=== PATIENT | female | born 1960 ===

== ENCOUNTER 2021-02-14 08:36 | Observation (INO) | payer OTHER ==
[2021-02-14 09:38] LABS: Basophils % (Auto) 0.2 % (0.0-1.8); Eosinophils # (Auto) 0.1 K/mm3 (0.0-0.4); Eosinophils % (Auto) 0.8 % (0.0-4.3); Hematocrit 41.4 % (30.3-42.9); Hemoglobin 14.2 gm/dl (10.1-14.3); Lymphocytes % (Auto) 14.2 % (13.4-35.0); Mean Corpuscular HGB Conc 34 % (30-34); Mean Corpuscular Volume 95 fl (79-97); Monocytes # (Auto) 0.2 K/mm3 (0.0-0.8); Monocytes % (Auto) 3.7 % (0.0-7.3); Platelet Count 145 K/mm3 (140-440); Red Blood Count 4.37 M/mm3 (3.65-5.03); Red Cell Distribution Width 12.7 % (13.2-15.2)
[2021-02-14 09:50] LABS: Alanine Aminotransferase 16 units/L (7-56); Albumin 4.5 g/dL (3.9-5); Blood Urea Nitrogen 21 mg/dL (7-17); Calcium 9.4 mg/dL (8.4-10.2); Hemolysis Index 15
[2021-02-14 09:53] LABS: BUN/Creatinine Ratio 42
[2021-02-14 10:52] LABS: Bilirubin,Urine NEG (Negative); Blood,Urine SM (Negative); Color,Urine Yellow (Yellow); Mucus,Urine FEW /HPF; Protein,Urine <15 mg/dL mg/dL (Negative); Urobilinogen,Urine < 2.0 mg/dL (<2.0); WBC,Urine < 1.0 /HPF (0.0-6.0)
[2021-02-14] MEDS ORDERED: MORPHINE 4 MG/1 ML INJ IV ONE (11:04)
[2021-02-14] MEDS ORDERED: ONDANSETRON 4 MG/2 ML INJ IV ONE (11:04)
[2021-02-14] MEDS ORDERED: SODIUM CHLORIDE 0.9% 1000 ML 1,000 ML IV ONE (11:04)
--- NOTE | 2021-02-14 11:05 | Emergency Department Report ---
ED Abdominal Pain HPI - General Chief Complaint: Abdominal Pain Stated Complaint: STOMACH PAIN Time Seen by Provider: 02/14/21 10:17 Source: family Mode of arrival: Ambulatory Limitations: Language Barrier - History of Present Illness Initial Comments: 61-year-old female with a past medical history of hypertension, hyperlipidemia and colon cancer diagnosed in 2006 status post colon resection, currently in remission presents to the ER today with her daughter. Daughter was the overcaster. Patient complains of upper abdominal pain radiating around into her back since last night. She states that the pain has been constant. She also reports mild intermittent pain into her left chest and she states that when the pain in her abdomen intensifies she gets short of breath. She denies any nausea or vomiting. She denies any diarrhea. The last time she had a bowel movement was this morning but only had small amount of stool. She denies any melena or hematochezia. She denies any fever, chills, cough, wheezing, or UTI symptoms. MD Complaint: abdominal pain -: Gradual, Last night - Related Data Allergies Allergy/AdvReac Type Severity Reaction Status Date / Time No Known Allergies Allergy Unverified 02/14/21 08:43 ED Review of Systems ROS: Stated complaint: STOMACH PAIN Other details as noted in HPI Comment: All other systems reviewed and negative Constitutional: denies: chills, fever Eyes: denies: eye pain, eye discharge, vision change ENT: denies: ear pain, throat pain Respiratory: denies: cough, shortness of breath, SOB with exertion, SOB at rest, wheezing Cardiovascular: denies: chest pain, palpitations, edema, syncope, paroxysmal nocturnal dyspnea Gastrointestinal: abdominal pain, nausea. denies: vomiting, diarrhea, constipation, hematemesis, melena, hematochezia Genitourinary: denies: urgency, dysuria, frequency, hematuria, discharge, abnormal menses, dyspareunia Musculoskeletal: denies: back pain, joint swelling, arthralgia Skin: denies: rash, lesions, change in color, change in hair/nails, pruritus Neurological: denies: headache, weakness, paresthesias Psychiatric: denies: anxiety, depression, auditory hallucinations, visual hallucinations, homicidal thoughts, suicidal thoughts Hematological/Lymphatic: denies: easy bleeding, easy bruising ED Past Medical Hx - Past Medical History Hx of Cancer: Yes (COLON CA 2006) - Social History Smoking Status: Never Smoker Substance Use Type: None ED Physical Exam - General Limitations: Language Barrier General appearance: alert, in distress (Patient appears uncomfortable and in mild distress due to pain), obese - Head Head exam: Present: atraumatic, normocephalic, normal inspection - Eye Eye exam: Present: normal appearance, PERRL, EOMI Pupils: Present: normal accommodation - ENT ENT exam: Present: normal exam, mucous membranes moist, TM's normal bilaterally - Neck Neck exam: Present: normal inspection, full ROM - Respiratory Respiratory exam: Present: normal lung sounds bilaterally. Absent: respiratory distress, wheezes, rales, rhonchi, stridor - Cardiovascular Cardiovascular Exam: Present: regular rate, normal rhythm, normal heart sounds - GI/Abdominal GI/Abdominal exam: Present: soft, tenderness (Moderate tenderness to palpation to the right upper quadrant and epigastric area with some mild guarding but no rebound, or distention or rigidity), guarding. Absent: distended, rebound, rigid - Neurological Exam Neurological exam: Present: alert, oriented X3, CN II-XII intact, normal gait - Psychiatric Psychiatric exam: Present: normal affect, normal mood - Skin Skin exam: Present: intact ED Course Vital Signs 02/14/21 08:47 Temperature 98.9 F Pulse Rate 57 L Respiratory 24 Rate Blood Pressure 152/52 O2 Sat by Pulse 98 Oximetry ED Medical Decision Making - Lab Data Result diagrams: 02/14/21 09:00 02/14/21 09:00 - Radiology Data Radiology results: report reviewed Patient: ZOILA MILES MR#: [id number] 56 : 1960 Acct:[id number] Age/Sex: 61 / F ADM Date: 02/14/21 Loc: ED Attending Dr: Ordering Physician: JUMANA BOLTON Date of Service: 02/14/21 Procedure(s): XR chest routine 2V Accession Number(s): [id number] cc: JUMANA BOLTON Fluoro Time In Minutes: CHEST 2 VIEWS INDICATION / CLINICAL INFORMATION: chest pain. COMPARISON: None available. FINDINGS: SUPPORT DEVICES: None. HEART / MEDIASTINUM: No significant abnormality. LUNGS / PLEURA: No significant pulmonary or pleural abnormality. No pneumothorax. ADDITIONAL FINDINGS: No significant additional findings. IMPRESSION: 1. No acute findings. Signer Name: Kevin Bateman MD Signed: 02/14/2021 11:44 AM Workstation Name: [id number] Transcribed By: ADITI Dictated By: ANDRES BATEMAN MD Electronically Authenticated By: ANDRES BATEMAN MD Signed Date/Time: 02/14/21 1144 DD/ 1144 TD/TT: Patient: ZOILA MILES MR#: [id number] 56 : 1960 Acct:[id number] Age/Sex: 61 / F ADM Date: 02/14/21 Loc: ED Attending Dr: Ordering Physician: JUMANA BOLTON Date of Service: 02/14/21 Procedure(s): CT abdomen pelvis w con Accession Number(s): [id number] cc: JUMANA BOLTON CT ABDOMEN AND PELVIS WITH CONTRAST INDICATION: severe upper abd pain OMNIPAQUE 300 100ML CONTRAST: 100 cc Omnipaque 300 IV COMPARISON: None available. All CT scans at this location are performed using CT dose reduction for ALARA by means of automated exposure control. FINDINGS: Lung bases show mild atelectatic changes. No pneumoperitoneum is seen. Small cyst is noted in the liver. No other abdominal masses are seen. No urinary obstructive changes are noted. No evidence of bowel obstruction is seen. Right colectomy changes are noted. No pelvic masses are seen. No lymphadenopathy is noted. Gallbladder shows probable low-density large calculus. Gallbladder wall is prominently thickened and edematous. No biliary dilatation is seen. Pancreas appears within normal limits. IMPRESSION: Prominent wall edema of the gallbladder and probable cholelithiasis. Pattern is most consistent with acute cholecystitis. Gallbladder ultrasound may be useful for confirmation. Signer Name: Chito Naidu MD Signed: 02/14/2021 2:32 PM Workstation Name: [id number] Transcribed By: GJ Dictated By: Chito Naidu MD Electronically Authenticated By: Chito Naidu MD Signed Date/Time: 02/14/21 1432 DD/ 1430 TD/TT: Patient: ZOILA MILES MR#: [id number] [birth year] : 1960 Acct:[id number] Age/Sex: 61 / F ADM Date: 02/14/21 Loc: ED Attending Dr: Ordering Physician: JUMANA BOLTON Date of Service: 02/14/21 Procedure(s): US abdomen limited Accession Number(s): [id number] cc: JUMANA BOLTON ULTRASOUND ABDOMEN, LIMITED (RIGHT UPPER QUADRANT) INDICATION: Right upper quadrant/epigastric pain/cholecystitis COMPARISON: CT abdomen and pelvis today FINDINGS: Pancreas: Poorly seen Liver: Normal. Gallbladder: Multiple gallstones are noted. Though the technologist only measured a 1 mm gallbladder wall, I believe the gallbladder wall is actually quite edematous as seen on CT and measures at least 7 mm in thickness with internal fluid seen. Bile ducts: Normal. Common Bile Duct measures 2 mm. Right Kidney: Visualized portions show no abnormality. Free fluid: None. Additional Findings: None. IMPRESSION: Cholelithiasis with prominent gallbladder wall edema consistent with acute cholecystitis and consistent with the CT appearance Signer Name: Chito Naidu MD Signed: 02/14/2021 4:03 PM Workstation Name: [id number] Transcribed By: Dictated By: Chito Naidu MD Electronically Authenticated By: Chito Naidu MD Signed Date/Time: 02/14/21 1603 DD/ 1600 TD/TT: - Medical Decision Making All labs reviewed. CT and ultrasound reviewed. Work-up today shows that patient has acute cholecystitis. Her white count is normal. LFTs are normal. Lipase is normal. She is currently resting comfortably and feels better after morphine and Zofran. I did discuss lab and imaging results with patient. I discussed the diagnosis of cholecystitis with patient and that we will need to consult the general surgeon and that she will likely be admitted to the hospital. 1624: Case discussed with surgeon on-call, Dr Becker -agree with admitting patient to the hospitalist service and they will consult and she will likely take patient to the operating room tomorrow. She recommends starting patient on Zosyn and keeping patient n.p.o. after midnight. 1629: Discussed case with hospitalist, Dr Camarillo - He will admit patient. Discussed diagnosis, and the reason for admission with patient and her daughter( who is now in the room). They both expressed understanding and agree with plan. Patient is currently resting comfortably and states that she does not need any additional pain medication at this time. Critical care attestation.: If time is entered above; I have spent that time in minutes in the direct care of this critically ill patient, excluding procedure time. ED Disposition Clinical Impression: Acute cholecystitis Disposition: OP ADMIT IP TO THIS HOSP Is pt being admited?: Yes Does the pt Need Aspirin: No Condition: Stable
--- NOTE | 2021-02-14 11:48 | XRay Report ---
CHEST 2 VIEWS INDICATION / CLINICAL INFORMATION: chest pain. COMPARISON: None available. FINDINGS: SUPPORT DEVICES: None. HEART / MEDIASTINUM: No significant abnormality. LUNGS / PLEURA: No significant pulmonary or pleural abnormality. No pneumothorax. ADDITIONAL FINDINGS: No significant additional findings. IMPRESSION: 1. No acute findings. Signer Name: Kevin Bateman MD Signed: 02/14/2021 11:44 AM Workstation Name: [email or web address]
[2021-02-14 12:32] LABS: Alanine Aminotransferase 18 units/L (7-56); Albumin 4.5 g/dL (3.9-5)
[2021-02-14 12:46] LABS: Bilirubin,Direct < 0.2 mg/dL (0-0.2)
--- NOTE | 2021-02-14 14:37 | Cat Scan Report ---
CT ABDOMEN AND PELVIS WITH CONTRAST INDICATION: severe upper abd pain OMNIPAQUE 300 100ML CONTRAST: 100 cc Omnipaque 300 IV COMPARISON: None available. All CT scans at this location are performed using CT dose reduction for ALARA by means of automated e xposure control. FINDINGS: Lung bases show mild atelectatic changes. No pneumoperitoneum is seen. Small cyst is noted in the liver. No other abdominal masses are seen. No urinary obstructive changes are noted. No eviden ce of bowel obstruction is seen. Right colectomy changes are noted. No pelvic masses are seen. No lym phadenopathy is noted. Gallbladder shows probable low-density large calculus. Gallbladder wall is prominently thickened and edematous. No biliary dilatation is seen. Pancreas appears within normal limits. IMPRESSION: Prominent wall edema of the gallbladder and probable cholelithiasis. Pattern is most cons istent with acute cholecystitis. Gallbladder ultrasound may be useful for confirmation. Signer Name: Chito Naidu MD Signed: 02/14/2021 2:32 PM Workstation Name: [id number]
--- NOTE | 2021-02-14 16:07 | Ultrasound Report ---
ULTRASOUND ABDOMEN, LIMITED (RIGHT UPPER QUADRANT) INDICATION: Right upper quadrant/epigastric pain/cholecystitis COMPARISON: CT abdomen and pelvis today FINDINGS: Pancreas: Poorly seen Liver: Normal. Gallbladder: Multiple gallstones are noted. Though the technologist only measured a 1 mm gallbladder wall, I believe the gallbladder wall is actually quite edematous as seen on CT and measures at least 7 mm in thickness with internal fluid seen. Bile ducts: Normal. Common Bile Duct measures 2 mm. Right Kidney: Visualized portions show no abnormality. Free fluid: None. Additional Findings: None. IMPRESSION: Cholelithiasis with prominent gallbladder wall edema consistent with acute cholecystitis and consistent with the CT appearance Signer Name: Chito Naidu MD Signed: 02/14/2021 4:03 PM Workstation Name: [id number]
[2021-02-14] MEDS ORDERED: PIPERACILLIN/TAZOBACTAM 3.375 3.375 GM/50 ML BAG IV ONE (16:24)
[2021-02-14] MEDS ORDERED: oxyCODONE /ACETAMINOPHEN 5-325MG TAB PO PRN (16:29)
[2021-02-14] MEDS ORDERED: ACETAMINOPHEN 325 MG TAB PO PRN (16:29)
[2021-02-14] MEDS ORDERED: HYDROmorphone 1 MG/1 ML INJ IV PRN (16:29)
[2021-02-14] MEDS ORDERED: ALBUTEROL 2.5 MG/3 ML NEBU IH PRN (16:29)
[2021-02-14] MEDS ORDERED: ONDANSETRON 4 MG/2 ML INJ IV PRN (16:29)
[2021-02-14] MEDS ORDERED: SODIUM CHLORIDE 0.9% 1000 ML 1,000 ML IV SCH (16:30)
[2021-02-15 04:35] LABS: Basophils % (Auto) 0.5 % (0.0-1.8); Eosinophils # (Auto) 0.2 K/mm3 (0.0-0.4); Eosinophils % (Auto) 4.2 % (0.0-4.3); Hematocrit 37.5 % (30.3-42.9); Hemoglobin 12.8 gm/dl (10.1-14.3); Lymphocytes # (Auto) 1.5 K/mm3 (1.2-5.4); Lymphocytes % (Auto) 37.2 % (13.4-35.0); Mean Corpuscular HGB Conc 34 % (30-34); Mean Corpuscular Volume 95 fl (79-97); Monocytes # (Auto) 0.4 K/mm3 (0.0-0.8); Monocytes % (Auto) 8.8 % (0.0-7.3); Platelet Count 125 K/mm3 (140-440); Red Blood Count 3.96 M/mm3 (3.65-5.03); Red Cell Distribution Width 13.2 % (13.2-15.2)
[2021-02-15 04:57] LABS: Alanine Aminotransferase 14 units/L (7-56); Albumin 3.8 g/dL (3.9-5); Blood Urea Nitrogen 13 mg/dL (7-17); Hemolysis Index 7
[2021-02-15 05:14] LABS: BUN/Creatinine Ratio 26
[2021-02-15] MEDS: PIPERACIL/TAZOBACTA 4.5/NS 100 4.5 GM/100 ML VIAL IV SCH ×2 (08:13→21:22)
--- NOTE | 2021-02-15 11:41 | History and Physical Report ---
History of Present Illness Date of admission: 02/14/21 16:29 Chief complaint: My stomach hurts History of present illness: 61 YO Female with Obesity Hypoventilation Syndrome,HTN, HLD, Colon Cancer S/P resection presents to ED for evaluation. Patient reports "my stomach hurts". Patient states that she has experienced abdominal pain over the past 1 day with persistent symptoms over the same timeframe. Patient states that pain is 5/10, constant, worsened with movement, relieved with nonmovement. Patient transported to [facility] via private vehicle for further care and evaluation of the aforementioned symptoms. The patient was seen and evaluated in the emergency department. All lab and imaging studies reviewed. Patient with CT scan of the abdomen and pelvis and was found to have evidence of acute cholecystitis. Patient admitted to medical floor and treated with bowel rest, pain control, and supportive care. Surgical team consulted in ED. No reports of fever, chills, chest pain, palpitation, adductive cough, skin rash, recent ill contacts, or known exposure to COVID-19. No prior admission for review. No medication listed at time of admission reconciliation. Advanced care planning conducted in ED. Past History Past Medical History: cancer, hypertension, other (See HPI) Past Surgical History: bowel surgery Social history: single. denies: smoking, alcohol abuse, prescription drug abuse Family history: hypertension Medications and Allergies Allergies Allergy/AdvReac Type Severity Reaction Status Date / Time No Known Allergies Allergy Unverified 02/14/21 08:43 Active Meds: Active Medications Acetaminophen (Acetaminophen 325 Mg Tab) 650 mg PO Q4H PRN PRN Reason: Pain MILD(1-3)/Fever >100.5/SOUZA Albuterol (Albuterol 2.5 Mg/3 Ml Nebu) 2.5 mg IH Q4HRT PRN PRN Reason: Shortness Of Breath Hydromorphone HCl (Hydromorphone 1 Mg/1 Ml Inj) 0.5 mg IV Q3H PRN PRN Reason: Pain , Severe (7-10) Sodium Chloride (Nacl 0.9% 1000 Ml) 1,000 mls @ 100 mls/hr IV DIRECT DANIE Piperacillin Sod/Tazobactam Sod (Zosyn/Ns 4.5gm/100ml) 4.5 gm in 100 mls @ 200 mls/hr IV Q8H DANIE; Protocol Last Admin: 02/15/21 08:13 Dose: 200 mls/hr Documented by: Ondansetron HCl (Ondansetron 4 Mg/2 Ml Inj) 4 mg IV Q8H PRN PRN Reason: Nausea And Vomiting Oxycodone/Acetaminophen (Oxycodone /Acetaminophen 5-325mg Tab) 1 tab PO Q6H PRN PRN Reason: Pain, Moderate (4-6) Last Admin: 02/14/21 16:48 Dose: 1 tab Documented by: Sodium Chloride (Sodium Chloride 0.9% 10 Ml Flush Syringe) 10 ml IV BID [facility] Last Admin: 02/15/21 09:59 Dose: 10 ml Documented by: Sodium Chloride (Sodium Chloride 0.9% 10 Ml Flush Syringe) 10 ml IV PRN PRN PRN Reason: LINE FLUSH Review of Systems Constitutional: no weight loss, no weight gain, no fever, no chills Ears, nose, mouth and throat: no ear pain, no ear discharge, no decreased heari ng, no nasal congestion Breasts: no change in shape, no swelling, no mass Cardiovascular: no chest pain, no orthopnea, no edema Respiratory: no cough, no cough with sputum, no excessive sputum, no shortness of breath Gastrointestinal: abdominal pain, no nausea, no vomiting, no diarrhea, no BRBPR, no melena Genitourinary Female: no pelvic pain, no flank pain, no dysuria, no urinary frequency Rectal: no pain, no incontinence, no bleeding Musculoskeletal: no neck stiffness, no neck pain, no arm numbness/tingling, no low back pain Integumentary: no rash, no pruritis, no redness, no sores, no wounds Neurological: no head injury, no transient paralysis, no weakness, no tingling, no seizures, no syncope, no tremors Psychiatric: no anxiety, no memory loss, no change in sleep habits, no sleep disturbances, no hypersomnia, no change in appetite, no change in libido, no hallucinations Endocrine: no heat intolerance, no polyphagia, no polyuria, no nocturia, no flushing, no weight change, no low blood sugars Hematologic/Lymphatic: no easy bruising, no easy bleeding, no lymphadenopathy Allergic/Immunologic: no urticaria, no wheezing, no anaphylaxis Exam - Constitutional Vitals: Temp Pulse Resp BP Pulse Ox 98.4 F 60 18 142/82 97 02/14/21 17:00 02/14/21 17:00 02/14/21 17:00 02/14/21 17:00 02/14/21 17:00 General appearance: Present: mild distress, obese - EENT Eyes: Present: PERRL ENT: hearing intact, clear oral mucosa - Neck Neck: Present: supple, normal ROM - Respiratory Respiratory effort: normal Respiratory: bilateral: CTA - Cardiovascular Heart Sounds: Present: S1 & S2. Absent: rub, click - Extremities Extremities: pulses symmetrical, No edema Peripheral Pulses: within normal limits - Abdominal General gastrointestinal: Present: soft, tender, non-distended, normal bowel sounds Female genitourinary: Present: normal - Integumentary Integumentary: Present: clear, warm, dry - Musculoskeletal Musculoskeletal: gait normal, strength equal bilaterally - Psychiatric Psychiatric: appropriate mood/affect, intact judgment & insight - Neurologic Neurologic: CNII-XII intact, moves all extremities HEART Score - HEART Score Troponin: Troponin T < 0.010 ng/mL (0.00-0.029) 02/14/21 09:00 Results - Labs CBC & Chem 7: 02/15/21 04:03 02/15/21 04:03 Labs: Abnormal lab results 02/15/21 02/15/21 Range/Units 04:03 04:03 WBC 4.0 L (4.5-11.0) K/mm3 Plt Count 125 L (140-440) K/mm3 Lymph % (Auto) 37.2 H (13.4-35.0) % [place] % (Auto) 8.8 H (0.0-7.3) % Creatinine 0.5 L (0.6-1.2) mg/dL Total Protein 6.0 L D (6.3-8.2) g/dL Albumin 3.8 L (3.9-5) g/dL Assessment and Plan - Patient Problems (1) Acute cholecystitis Current Visit: Yes Status: Acute Plan to address problem: Serial abdominal exam, CT scan abdomen and pelvis, bowel rest, IV fluid resuscitation therapy, empiric IV antibiotic therapy, surgical team consulted. Patient pending surgical intervention. (2) Obesity hypoventilation syndrome Current Visit: Yes Status: Acute Plan to address problem: Balanced diet, increase physical activity at discharge, outpatient pulmonary follow-up for sleep study. (3) Hypertension Current Visit: Yes Status: Acute Qualifiers: Hypertension type: primary hypertension Qualified Code(s): I10 - Essential (primary) hypertension Plan to address problem: Monitor blood pressure every shift, continue medical management (4) Hyperlipidemia Current Visit: Yes Status: Acute Qualifiers: Hyperlipidemia type: mixed hyperlipidemia Qualified Code(s): E78.2 - Mixed hyperlipidemia Plan to address problem: Statin therapy, supportive care (5) DVT prophylaxis Current Visit: Yes Status: Acute Plan to address problem: SCD to bilateral lower extremities while in bed, ambulate 3 times daily and as needed, out of bed to chair as needed (6) Advance care planning Current Visit: Yes Status: Acute Plan to address problem: Disease education conducted, care plan discussed, diagnosis discussed, prognosis discussed, patient is full code, patient and daughter knowledges understanding and agreement with care plan, +30 minutes.
--- NOTE | 2021-02-15 11:50 | Consultation ---
History of Present Illness Consult date: 02/15/21 Reason for consult: abdominal pain Chief complaint: abd pain - History of present illness History of present illness: 61-year-old female with PMH of HTN, HLD, colon cancer s/p resection presents to the ER with c/o sharp epigastric pain that started 1 days ago.Pain radiates to back. Pain has been constant but better now. She denies any nausea or vomiting, diarrhea. No f/c. W/u in Er revealed acute cholecystitis and surgery is consulted for evaluation. Patient's daughter contacted as well. Past History Past Medical History: cancer (colon), hypertension, hyperlipidemia Past Surgical History: bowel surgery Social history: no significant social history Medications and Allergies Allergies Allergy/AdvReac Type Severity Reaction Status Date / Time No Known Allergies Allergy Unverified 02/14/21 08:43 Active Meds: Active Medications Acetaminophen (Acetaminophen 325 Mg Tab) 650 mg PO Q4H PRN PRN Reason: Pain MILD(1-3)/Fever >100.5/SOUZA Albuterol (Albuterol 2.5 Mg/3 Ml Nebu) 2.5 mg IH Q4HRT PRN PRN Reason: Shortness Of Breath Hydromorphone HCl (Hydromorphone 1 Mg/1 Ml Inj) 0.5 mg IV Q3H PRN PRN Reason: Pain , Severe (7-10) Sodium Chloride (Nacl 0.9% 1000 Ml) 1,000 mls @ 100 mls/hr IV DIRECT DANIE Piperacillin Sod/Tazobactam Sod (Zosyn/Ns 4.5gm/100ml) 4.5 gm in 100 mls @ 200 mls/hr IV Q8H DANIE; Protocol Last Admin: 02/15/21 08:13 Dose: 200 mls/hr Documented by: Ondansetron HCl (Ondansetron 4 Mg/2 Ml Inj) 4 mg IV Q8H PRN PRN Reason: Nausea And Vomiting Oxycodone/Acetaminophen (Oxycodone /Acetaminophen 5-325mg Tab) 1 tab PO Q6H PRN PRN Reason: Pain, Moderate (4-6) Last Admin: 02/14/21 16:48 Dose: 1 tab Documented by: Sodium Chloride (Sodium Chloride 0.9% 10 Ml Flush Syringe) 10 ml IV BID DANIE Last Admin: 02/15/21 09:59 Dose: 10 ml Documented by: Sodium Chloride (Sodium Chloride 0.9% 10 Ml Flush Syringe) 10 ml IV PRN PRN PRN Reason: LINE FLUSH Review of Systems All systems: negative (10 pt ROS performed and negative except for that listed in HPI) Exam Vital Signs Temp Pulse Resp BP Pulse Ox 98.9 F 57 L 24 152/52 98 02/14/21 08:47 02/14/21 08:47 02/14/21 08:47 02/14/21 08:47 02/14/21 08:47 Narrative exam: Gen; AAox3. NAD ENT: no scleral icterus CV: S1, S2+ Resp; even and unlabored Abd; soft, ND, mild epigastric TTP. No r/r/g. Well healed midline surgical scar. Ext: no c/c/e Results - Labs 02/15/21 04:03 02/15/21 04:03 Abnormal lab results 02/15/21 02/15/21 Range/Units 04:03 04:03 WBC 4.0 L (4.5-11.0) K/mm3 Plt Count 125 L (140-440) K/mm3 Lymph % (Auto) 37.2 H (13.4-35.0) % [place] % (Auto) 8.8 H (0.0-7.3) % Creatinine 0.5 L (0.6-1.2) mg/dL Total Protein 6.0 L D (6.3-8.2) g/dL Albumin 3.8 L (3.9-5) g/dL Diabetes panel 02/14/21 02/15/21 Range/Units 09:00 04:03 Sodium 140 (137-145) mmol/L Potassium 3.8 (3.6-5.0) mmol/L Chloride 105.8 (98-107) mmol/L Carbon Dioxide 24 (22-30) mmol/L BUN 13 (7-17) mg/dL Creatinine 0.5 L (0.6-1.2) mg/dL Glucose 86 (65-100) mg/dL Calcium 9.0 (8.4-10.2) mg/dL AST 24 19 (5-40) units/L ALT 18 14 (7-56) units/L Alkaline Phosphatase 83 68 (35-129) units/L Total Protein 7.6 6.0 L D (6.3-8.2) g/dL Albumin 4.5 3.8 L (3.9-5) g/dL Calcium panel 02/14/21 02/15/21 Range/Units 09:00 04:03 Calcium 9.0 (8.4-10.2) mg/dL Albumin 4.5 3.8 L (3.9-5) g/dL Pituitary panel 02/15/21 Range/Units 04:03 Sodium 140 (137-145) mmol/L Potassium 3.8 (3.6-5.0) mmol/L Chloride 105.8 (98-107) mmol/L Carbon Dioxide 24 (22-30) mmol/L BUN 13 (7-17) mg/dL Creatinine 0.5 L (0.6-1.2) mg/dL Glucose 86 (65-100) mg/dL Calcium 9.0 (8.4-10.2) mg/dL Adrenal panel 02/14/21 02/15/21 Range/Units 09:00 04:03 Sodium 140 (137-145) mmol/L Potassium 3.8 (3.6-5.0) mmol/L Chloride 105.8 (98-107) mmol/L Carbon Dioxide 24 (22-30) mmol/L BUN 13 (7-17) mg/dL Creatinine 0.5 L (0.6-1.2) mg/dL Glucose 86 (65-100) mg/dL Calcium 9.0 (8.4-10.2) mg/dL Total Bilirubin 0.20 0.60 (0.1-1.2) mg/dL AST 24 19 (5-40) units/L ALT 18 14 (7-56) units/L Alkaline Phosphatase 83 68 (35-129) units/L Total Protein 7.6 6.0 L D (6.3-8.2) g/dL Albumin 4.5 3.8 L (3.9-5) g/dL - Imaging CT scan - abdomen: report reviewed, image reviewed CT scan - pelvis: report reviewed, image reviewed US - abdomen: report reviewed, image reviewed Assessment and Plan 61 yo F with acute cholecystitis Plan: 1. NPO 2. IVF 3. IV abx 4. prn pain and nausea control 5. Recommend cholecystectomy. Discussed with patient and her daughter over telephone. All risks, benefits, alternatives discussed and questions answered. Consent obtained. Thank you, please call with questions.
--- NOTE | 2021-02-15 11:54 | Electrocardiograph Report ---
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
[2021-02-15] MEDS ORDERED: BUPIVACAINE/PF (0.5%) 5 MG/1 ML 30 ML VIAL INFILTRATI ONE ×2 (13:52→17:13)
[2021-02-15] MEDS ORDERED: LIDOCAINE (1%) 10 MG/1 ML VIAL 20 ML MDV ONE (13:52)
--- NOTE | 2021-02-15 14:22 | Progress Note ---
Assessment and Plan - Patient Problems (1) Acute cholecystitis Current Visit: Yes Status: Acute Plan to address problem: Serial abdominal exam, surgical team consulted. Patient pending surgical intervention. (2) Obesity hypoventilation syndrome Current Visit: Yes Status: Acute Plan to address problem: Balanced diet, increase physical activity at discharge, outpatient pulmonary follow-up for sleep study. (3) Hypertension Current Visit: Yes Status: Acute Qualifiers: Hypertension type: primary hypertension Qualified Code(s): I10 - Essential (primary) hypertension Plan to address problem: Monitor blood pressure every shift, continue medical management (4) Hyperlipidemia Current Visit: Yes Status: Acute Qualifiers: Hyperlipidemia type: mixed hyperlipidemia Qualified Code(s): E78.2 - Mixed hyperlipidemia Plan to address problem: Statin therapy, supportive care (5) DVT prophylaxis Current Visit: Yes Status: Acute Plan to address problem: SCD to bilateral lower extremities while in bed, ambulate 3 times daily and as needed, out of bed to chair as needed (6) Advance care planning Current Visit: Yes Status: Acute Plan to address problem: Disease education conducted, care plan discussed, diagnosis discussed, prognosis discussed, patient is full code, patient and daughter knowledges understanding and agreement with care plan, +30 minutes. History Interval history: 61 YO Female HD #2 with Acute Cholecystitis. Patient seen and evaluated in her room. No reported nursing events. Patient appears comfortable. Patient is pending surgical intervention at this time. Hospitalist Physical - Constitutional Vitals: Temp Pulse Resp BP Pulse Ox 98.4 F 60 18 142/82 97 02/14/21 17:00 02/14/21 17:00 02/14/21 17:00 02/14/21 17:00 02/14/21 17:00 General appearance: Present: mild distress, obese - EENT Eyes: Present: PERRL, EOM intact ENT: hearing intact - Neck Neck: Present: supple - Respiratory Respiratory effort: normal Respiratory: bilateral: CTA - Cardiovascular Rhythm: regular Heart Sounds: Present: S1 & S2 - Extremities Extremities: no ischemia Extremity abnormal: edema Peripheral Pulses: abnormal - Abdominal General gastrointestinal: soft, non-distended - Integumentary Integumentary: Present: clear, dry - Psychiatric Psychiatric: cooperative - Neurologic Neurologic: CNII-XII intact HEART Score - HEART Score Troponin: Troponin T < 0.010 ng/mL (0.00-0.029) 02/14/21 09:00 Results - Labs CBC & Chem 7: 02/15/21 04:03 02/15/21 04:03 Labs: Laboratory Last Values WBC 4.0 K/mm3 (4.5-11.0) L 02/15/21 04:03 RBC 3.96 M/mm3 (3.65-5.03) 02/15/21 04:03 Hgb 12.8 gm/dl (10.1-14.3) 02/15/21 04:03 Hct 37.5 % (30.3-42.9) 02/15/21 04:03 MCV 95 fl (79-97) 02/15/21 04:03 MCH 32 pg (28-32) 02/15/21 04:03 MCHC 34 % (30-34) 02/15/21 04:03 RDW 13.2 % (13.2-15.2) 02/15/21 04:03 Plt Count 125 K/mm3 (140-440) L 02/15/21 04:03 Lymph % (Auto) 37.2 % (13.4-35.0) H 02/15/21 04:03 [place] % (Auto) 8.8 % (0.0-7.3) H 02/15/21 04:03 Eos % (Auto) 4.2 % (0.0-4.3) 02/15/21 04:03 Baso % (Auto) 0.5 % (0.0-1.8) 02/15/21 04:03 Lymph # (Auto) 1.5 K/mm3 (1.2-5.4) 02/15/21 04:03 [place] # (Auto) 0.4 K/mm3 (0.0-0.8) 02/15/21 04:03 Eos # (Auto) 0.2 K/mm3 (0.0-0.4) 02/15/21 04:03 Baso # (Auto) 0.0 K/mm3 (0.0-0.1) 02/15/21 04:03 Seg Neutrophils % 49.3 % (40.0-70.0) 02/15/21 04:03 Seg Neutrophils # 2.0 K/mm3 (1.8-7.7) 02/15/21 04:03 Sodium 140 mmol/L (137-145) 02/15/21 04:03 Potassium 3.8 mmol/L (3.6-5.0) 02/15/21 04:03 Chloride 105.8 mmol/L (98-107) 02/15/21 04:03 Carbon Dioxide 24 mmol/L (22-30) 02/15/21 04:03 Anion Gap 14 mmol/L 02/15/21 04:03 BUN 13 mg/dL (7-17) 02/15/21 04:03 Creatinine 0.5 mg/dL (0.6-1.2) L 02/15/21 04:03 Estimated GFR > 60 ml/min 02/15/21 04:03 BUN/Creatinine Ratio 26 % 02/15/21 04:03 Glucose 86 mg/dL (65-100) 02/15/21 04:03 Calcium 9.0 mg/dL (8.4-10.2) 02/15/21 04:03 Total Bilirubin 0.60 mg/dL (0.1-1.2) 02/15/21 04:03 Direct Bilirubin < 0.2 mg/dL (0-0.2) 02/14/21 09:00 Indirect Bilirubin 0.0 mg/dL 02/14/21 09:00 AST 19 units/L (5-40) 02/15/21 04:03 ALT 14 units/L (7-56) 02/15/21 04:03 Alkaline Phosphatase 68 units/L (35-129) 02/15/21 04:03 Troponin T < 0.010 ng/mL (0.00-0.029) 02/14/21 09:00 Total Protein 6.0 g/dL (6.3-8.2) L D 02/15/21 04:03 Albumin 3.8 g/dL (3.9-5) L 02/15/21 04:03 Albumin/Globulin Ratio 1.7 % 02/15/21 04:03 Lipase 51 units/L (13-60) 02/14/21 09:00 Urine Color Yellow (Yellow) 02/14/21 08:52 Urine Turbidity Clear (Clear) 02/14/21 08:52 Urine pH 5.0 (5.0-7.0) 02/14/21 08:52 Ur Specific [place] 1.021 (1.003-1.030) 02/14/21 08:52 Urine Protein <15 mg/dl mg/dL (Negative) 02/14/21 08:52 Urine Glucose (UA) Neg mg/dL (Negative) 02/14/21 08:52 Urine Ketones Neg mg/dL (Negative) 02/14/21 08:52 Urine Blood Sm (Negative) 02/14/21 08:52 Urine Nitrite Neg (Negative) 02/14/21 08:52 Urine Bilirubin Neg (Negative) 02/14/21 08:52 Urine Urobilinogen < 2.0 mg/dL (<2.0) 02/14/21 08:52 Ur Leukocyte Esterase Neg (Negative) 02/14/21 08:52 Urine WBC (Auto) < 1.0 /HPF (0.0-6.0) 02/14/21 08:52 Urine RBC (Auto) 1.0 /HPF (0.0-6.0) 02/14/21 08:52 U Epithel Cells (Auto) 1.0 /HPF (0-13.0) 02/14/21 08:52 Urine Mucus Few /HPF 02/14/21 08:52 Active Medications - Current Medications Current Medications: Generic Name Dose Route Start Last Admin Trade Name Freq PRN Reason Stop Dose Admin Acetaminophen 650 mg 02/14/21 16:29 Acetaminophen 325 Mg Tab PO Q4H PRN Pain MILD(1-3)/Fever >100.5/SOUZA Albuterol 2.5 mg 02/14/21 16:29 Albuterol 2.5 Mg/3 Ml Nebu IH Q4HRT PRN Shortness Of Breath Hydromorphone HCl 0.5 mg 02/14/21 16:29 Hydromorphone 1 Mg/1 Ml Inj IV Q3H PRN Pain , Severe (7-10) Sodium Chloride 1,000 mls @ 100 mls/hr 02/14/21 16:30 Nacl 0.9% 1000 Ml IV DIRECT DANIE Piperacillin Sod/Tazobactam Sod 4.5 gm in 100 mls @ 200 mls/hr 02/15/21 08:00 02/15/21 08:13 Zosyn/Ns 4.5gm/100ml IV 200 mls/hr Q8H DANIE Administration Protocol Ondansetron HCl 4 mg 02/14/21 16:29 Ondansetron 4 Mg/2 Ml Inj IV Q8H PRN Nausea And Vomiting Oxycodone/Acetaminophen 1 tab 02/14/21 16:29 02/14/21 16:48 Oxycodone /Acetaminophen 5-325mg Tab PO 1 tab Q6H PRN Administration Pain, Moderate (4-6) Sodium Chloride 10 ml 02/14/21 22:00 02/15/21 09:59 Sodium Chloride 0.9% 10 Ml Flush Syringe IV 10 ml BID DANIE Administration Sodium Chloride 10 ml 02/14/21 16:29 Sodium Chloride 0.9% 10 Ml Flush Syringe IV PRN PRN LINE FLUSH
--- NOTE | 2021-02-15 16:35 | Anesthesia Day of Surgery ---
Anesthesia Day of Surgery - Day of Surgery Patient Examined: Yes Patient H&P Reviewed: Yes Patient is NPO: Yes
--- NOTE | 2021-02-15 16:40 | Anesthesia Consultation ---
Anesthesia Consult and Med Hx Date of service: 02/15/21 - Airway Anesthetic Teeth Evaluation: Good, Caps ROM Head & Neck: Adequate Mental/Hyoid Distance: Adequate Mallampati Class: Class III Intubation Access Assessment: Probably Good - Pre-Operative Health Status ASA Pre-Surgery Classification: ASA2, Emergency Proposed Anesthetic Plan: General - Pulmonary Hx Smoking: No - Cardiovascular System Hx Hypertension: Yes - Other Systems Hx Cancer: Yes (colon) Hx Obesity: Yes
[2021-02-15] MEDS ORDERED: ROCURONIUM 50 MG/5 ML INJ IV ONE (16:42)
[2021-02-15] MEDS ORDERED: fentaNYL 100 MCG/2 ML INJ ONE (16:43)
[2021-02-15] MEDS ORDERED: propofoL 200 MG/20 ML VIAL IV ONE (16:43)
[2021-02-15] MEDS ORDERED: MIDAZOLAM 2 MG/2 ML INJ ONE (16:44)
[2021-02-15] MEDS ORDERED: dexAMETHasone 20 MG/5 ML VIAL ONE (16:54)
[2021-02-15] MEDS ORDERED: ONDANSETRON 4 MG/2 ML INJ ONE (16:54)
[2021-02-15] MEDS ORDERED: LIDOCAINE (1%) 10 MG/1 ML VIAL 20 ML MDV INFILTRATI ONE (17:14)
[2021-02-15] MEDS ORDERED: WATER FOR IRRIG STERILE 1,500 ML BOTTLE IR ONE (17:14)
[2021-02-15] MEDS ORDERED: HYDROmorphone 1 MG/1 ML INJ ONE (17:49)
[2021-02-15] MEDS ORDERED: ONDANSETRON 4 MG/2 ML INJ IV PRN (18:16)
[2021-02-15] MEDS ORDERED: ACETAMINOPHEN 325 MG TAB PO PRN (18:16)
[2021-02-15] MEDS ORDERED: HYDROmorphone 1 MG/1 ML INJ IV PRN (18:21)
--- NOTE | 2021-02-15 19:33 | Post Operative Note ---
Pre-op diagnosis: acute cholecystitis Post-op diagnosis: other (acute cholecystitis, extensive adhesive disease) Findings: 1. extensive adhesions from omentum and transverse colon to abdominal wall, small bowel to gallbladder 2. Gallbladder with large stone and pericholecystic fluid 3. Friable liver bed, hepatomegaly Procedure: laparoscopic extensive lysis of adhesions, cholecystectomy Anesthesia: GETA, local Surgeon: KARL STALEY Automobile Dealer: ANSELMO YODER Estimated blood loss: other (150-200cc) Pathology: list (gallbladder) Specimen disposition: to lab Condition: stable Disposition: PACU
--- NOTE | 2021-02-15 19:58 | Post Anesthesia Evaluation ---
- Post Anesthesia Evaluation Patient Participated: Yes Airway Patent: Yes Stable Respiratory Function: Yes Nausea/Vomiting: No Temp > 96.8F: Yes Pain Manageable: Yes Adequeate Hydration: Yes Anesthesia Complications: No Block Receding Appropriately: Not Applicable Patient on Ventilator: No
[2021-02-15 21:33] LABS: Hematocrit 36.5 % (30.3-42.9); Hemoglobin 12.4 gm/dl (10.1-14.3); Mean Corpuscular HGB Conc 34 % (30-34); Mean Corpuscular Volume 95 fl (79-97); Platelet Count 112 K/mm3 (140-440); Red Blood Count 3.84 M/mm3 (3.65-5.03); Red Cell Distribution Width 12.9 % (13.2-15.2)
[2021-02-15] MEDS: oxyCODONE /ACETAMINOPHEN 5-325MG TAB PO PRN (22:45)
[2021-02-16] MEDS: PIPERACIL/TAZOBACTA 4.5/NS 100 4.5 GM/100 ML VIAL IV SCH (03:58)
[2021-02-16 04:21] LABS: Hematocrit 36.7 % (30.3-42.9); Hemoglobin 12.3 gm/dl (10.1-14.3); Mean Corpuscular HGB Conc 34 % (30-34); Mean Corpuscular Volume 97 fl (79-97); Platelet Count 100 K/mm3 (140-440); Red Cell Distribution Width 12.9 % (13.2-15.2)
[2021-02-16] MEDS ORDERED: PIPERACIL/TAZOBACTA 4.5/NS 100 4.5 GM/100 ML VIAL IV SCH ×2 (06:00→14:00)
[2021-02-16] MEDS: oxyCODONE /ACETAMINOPHEN 5-325MG TAB PO PRN ×2 (06:02→15:45)
--- NOTE | 2021-02-16 09:28 | Progress Note ---
Assessment and Plan Assessment and plan: (1) Acute cholecystitis Current Visit: Yes Status: Acute Plan to address problem: Serial abdominal exam, surgical team consulted. Patient pending surgical intervention. (2) Obesity hypoventilation syndrome Current Visit: Yes Status: Acute Plan to address problem: Balanced diet, increase physical activity at discharge, outpatient pulmonary follow-up for sleep study. (3) Hypertension Current Visit: Yes Status: Acute Qualifiers: Hypertension type: primary hypertension Qualified Code(s): I10 - Essential (primary) hypertension Plan to address problem: Monitor blood pressure every shift, continue medical management (4) Hyperlipidemia Current Visit: Yes Status: Acute Qualifiers: Hyperlipidemia type: mixed hyperlipidemia Qualified Code(s): E78.2 - Mixed hyperlipidemia Plan to address problem: Statin therapy, supportive care (5) DVT prophylaxis Current Visit: Yes Status: Acute Plan to address problem: SCD to bilateral lower extremities while in bed, ambulate 3 times daily and as needed, out of bed to chair as needed (6) Advance care planning Current Visit: Yes Status: Acute Plan to address problem: Disease education conducted, care plan discussed, diagnosis discussed, prognosis discussed, patient is full code, patient and daughter knowledges understanding and agreement with care plan, +30 minutes. 02/16; status postop day 1 status post laparoscopic extensive lysis of adhesions and cholecystectomy. Continue with Zosyn. Patient can be transferred to the floor. Patient is cleared for discharge by general surgery. History Interval history: Patient was seen and evaluated this morning Patient was complaining abdominal pain Patient is Urdu speaker and her daughter over the phone and interpreted Hospitalist Physical - Physical exam Narrative exam: Not in cardiopulmonary distress. The patient appeared well nourished and normally developed. Vital signs as documented. Head exam is unremarkable. No scleral icterus . Neck is without jugular venous distension, thyromegaly, or carotid bruits. Lungs are clear to auscultation. Cardiac exam reveals regular rate and Rhythm. Abdominal exam reveals abdominal pain. Extremities are nonedematous and both femoral and pedal pulses are normal. CASE SEALER: Alert and oriented 3. No focal weakness. - Constitutional Vitals: Temp Pulse Resp BP Pulse Ox 98.2 F 70 13 108/28 97 02/16/21 08:00 02/16/21 09:11 02/16/21 09:11 02/16/21 09:11 02/16/21 09:11 General appearance: Present: mild distress, obese HEART Score - HEART Score Troponin: Troponin T < 0.010 ng/mL (0.00-0.029) 02/14/21 09:00 Results - Labs CBC & Chem 7: 02/16/21 03:48 02/15/21 04:03 Labs: Laboratory Last Values WBC 6.4 K/mm3 (4.5-11.0) 02/16/21 03:48 RBC 3.80 M/mm3 (3.65-5.03) 02/16/21 03:48 Hgb 12.3 gm/dl (10.1-14.3) 02/16/21 03:48 Hct 36.7 % (30.3-42.9) 02/16/21 03:48 MCV 97 fl (79-97) 02/16/21 03:48 MCH 32 pg (28-32) 02/16/21 03:48 MCHC 34 % (30-34) 02/16/21 03:48 RDW 12.9 % (13.2-15.2) L 02/16/21 03:48 Plt Count 100 K/mm3 (140-440) L 02/16/21 03:48 Lymph % (Auto) 37.2 % (13.4-35.0) H 02/15/21 04:03 [place] % (Auto) 8.8 % (0.0-7.3) H 02/15/21 04:03 Eos % (Auto) 4.2 % (0.0-4.3) 02/15/21 04:03 Baso % (Auto) 0.5 % (0.0-1.8) 02/15/21 04:03 Lymph # (Auto) 1.5 K/mm3 (1.2-5.4) 02/15/21 04:03 [place] # (Auto) 0.4 K/mm3 (0.0-0.8) 02/15/21 04:03 Eos # (Auto) 0.2 K/mm3 (0.0-0.4) 02/15/21 04:03 Baso # (Auto) 0.0 K/mm3 (0.0-0.1) 02/15/21 04:03 Seg Neutrophils % 49.3 % (40.0-70.0) 02/15/21 04:03 Seg Neutrophils # 2.0 K/mm3 (1.8-7.7) 02/15/21 04:03 Sodium 140 mmol/L (137-145) 02/15/21 04:03 Potassium 3.8 mmol/L (3.6-5.0) 02/15/21 04:03 Chloride 105.8 mmol/L (98-107) 02/15/21 04:03 Carbon Dioxide 24 mmol/L (22-30) 02/15/21 04:03 Anion Gap 14 mmol/L 02/15/21 04:03 BUN 13 mg/dL (7-17) 02/15/21 04:03 Creatinine 0.5 mg/dL (0.6-1.2) L 02/15/21 04:03 Estimated GFR > 60 ml/min 02/15/21 04:03 BUN/Creatinine Ratio 26 % 02/15/21 04:03 Glucose 86 mg/dL (65-100) 02/15/21 04:03 POC Glucose 114 mg/dL (70-105) H 02/15/21 22:28 Calcium 9.0 mg/dL (8.4-10.2) 02/15/21 04:03 Total Bilirubin 0.60 mg/dL (0.1-1.2) 02/15/21 04:03 Direct Bilirubin < 0.2 mg/dL (0-0.2) 02/14/21 09:00 Indirect Bilirubin 0.0 mg/dL 02/14/21 09:00 AST 19 units/L (5-40) 02/15/21 04:03 ALT 14 units/L (7-56) 02/15/21 04:03 Alkaline Phosphatase 68 units/L (35-129) 02/15/21 04:03 Troponin T < 0.010 ng/mL (0.00-0.029) 02/14/21 09:00 Total Protein 6.0 g/dL (6.3-8.2) L D 02/15/21 04:03 Albumin 3.8 g/dL (3.9-5) L 02/15/21 04:03 Albumin/Globulin Ratio 1.7 % 02/15/21 04:03 Lipase 51 units/L (13-60) 02/14/21 09:00 Urine Color Yellow (Yellow) 02/14/21 08:52 Urine Turbidity Clear (Clear) 02/14/21 08:52 Urine pH 5.0 (5.0-7.0) 02/14/21 08:52 Ur Specific [place] 1.021 (1.003-1.030) 02/14/21 08:52 Urine Protein <15 mg/dl mg/dL (Negative) 02/14/21 08:52 Urine Glucose (UA) Neg mg/dL (Negative) 02/14/21 08:52 Urine Ketones Neg mg/dL (Negative) 02/14/21 08:52 Urine Blood Sm (Negative) 02/14/21 08:52 Urine Nitrite Neg (Negative) 02/14/21 08:52 Urine Bilirubin Neg (Negative) 02/14/21 08:52 Urine Urobilinogen < 2.0 mg/dL (<2.0) 02/14/21 08:52 Ur Leukocyte Esterase Neg (Negative) 02/14/21 08:52 Urine WBC (Auto) < 1.0 /HPF (0.0-6.0) 02/14/21 08:52 Urine RBC (Auto) 1.0 /HPF (0.0-6.0) 02/14/21 08:52 U Epithel Cells (Auto) 1.0 /HPF (0-13.0) 02/14/21 08:52 Urine Mucus Few /HPF 02/14/21 08:52 Blood Type AB POSITIVE 02/15/21 21:15 Antibody Screen Negative 02/15/21 21:15 [place]/IV: Voiding Method External Female Catheter Active Medications - Current Medications Current Medications: Generic Name Dose Route Start Last Admin Trade Name Freq PRN Reason Stop Dose Admin Acetaminophen 650 mg 02/15/21 18:16 Acetaminophen 325 Mg Tab PO Q4H PRN Pain MILD(1-3)/Fever >100.5/SOUZA Albuterol 2.5 mg 02/14/21 16:29 Albuterol 2.5 Mg/3 Ml Nebu IH Q4HRT PRN Shortness Of Breath Hydromorphone HCl 0.5 mg 02/15/21 18:21 Hydromorphone 1 Mg/1 Ml Inj IV Q3H PRN Pain , Severe (7-10) Sodium Chloride 1,000 mls @ 100 mls/hr 02/14/21 16:30 02/16/21 05:56 Nacl 0.9% 1000 Ml IV 100 mls/hr DIRECT DANIE Administration Piperacillin Sod/Tazobactam Sod 4.5 gm in 100 mls @ 200 mls/hr 02/16/21 14:00 Zosyn/Ns 4.5gm/100ml IV Q8HR DANIE Protocol Ondansetron HCl 4 mg 02/15/21 18:16 Ondansetron 4 Mg/2 Ml Inj IV Q8H PRN Nausea And Vomiting Oxycodone/Acetaminophen 1 tab 02/15/21 18:21 02/16/21 06:02 Oxycodone /Acetaminophen 5-325mg Tab PO 1 tab Q6H PRN Administration Pain, Moderate (4-6) Sodium Chloride 10 ml 02/14/21 22:00 02/15/21 22:48 Sodium Chloride 0.9% 10 Ml Flush Syringe IV 10 ml BID DANIE Administration Sodium Chloride 10 ml 02/15/21 18:21 Sodium Chloride 0.9% 10 Ml Flush Syringe IV PRN PRN LINE FLUSH
--- NOTE | 2021-02-16 11:23 | Progress Note ---
Assessment and Plan 61 yo F s/p laparoscopic extensive lysis of adhesions, cholecystectomy, POD 1 Plan: 1. reg diet 2. dc IVF 3. dc abx 4. prn pain control 5. IS/Pulm toilet 6. OOB/ambulate Spoke with patient' daughter. Instructed her to call surgery office and make appointment for follow up in 2 weeks. Ok to dc from surgery standpoint. Thank you, please call with questions. Subjective Date of service: 02/16/21 Narrative: Pt seen and examined. States pain is controlled with pain medications. She has not been OOB yet. No f/c. Tolerated diet this am. Objective Vital Signs - 12hr 02/15/21 02/15/21 02/15/21 23:31 23:41 23:51 Temperature Pulse Rate 65 63 59 L Pulse Rate [ From Monitor] Respiratory 14 14 19 Rate Blood Pressure 103/36 103/36 103/36 O2 Sat by Pulse 95 95 95 Oximetry 02/16/21 02/16/21 02/16/21 00:00 00:11 00:21 Temperature 97.8 F Pulse Rate 60 55 L 60 Pulse Rate [ 60 From Monitor] Respiratory 17 15 19 Rate Blood Pressure 97/35 97/35 97/35 O2 Sat by Pulse 95 95 98 Oximetry 02/16/21 02/16/21 02/16/21 00:31 00:41 00:51 Temperature Pulse Rate 57 L 57 L 55 L Pulse Rate [ From Monitor] Respiratory 15 14 13 Rate Blood Pressure 97/35 97/35 97/35 O2 Sat by Pulse 98 97 97 Oximetry 02/16/21 02/16/21 02/16/21 01:00 01:11 01:21 Temperature Pulse Rate 55 L 53 L 53 L Pulse Rate [ From Monitor] Respiratory 15 11 L 11 L Rate Blood Pressure 107/46 107/46 107/46 O2 Sat by Pulse 97 98 98 Oximetry 02/16/21 02/16/21 02/16/21 01:31 01:41 01:51 Temperature Pulse Rate 52 L 51 L 52 L Pulse Rate [ From Monitor] Respiratory 11 L 10 L 10 L Rate Blood Pressure 107/46 107/46 107/46 O2 Sat by Pulse 98 98 98 Oximetry 02/16/21 02/16/21 02/16/21 02:00 02:11 02:21 Temperature Pulse Rate 52 L 54 L 50 L Pulse Rate [ From Monitor] Respiratory 10 L 10 L 9 L Rate Blood Pressure 95/34 95/34 95/34 O2 Sat by Pulse 98 96 98 Oximetry 02/16/21 02/16/21 02/16/21 02:31 02:41 02:51 Temperature Pulse Rate 48 L 49 L 52 L Pulse Rate [ From Monitor] Respiratory 9 L 9 L 13 Rate Blood Pressure 95/34 95/34 96/36 O2 Sat by Pulse 98 98 97 Oximetry 02/16/21 02/16/21 02/16/21 03:00 03:11 03:21 Temperature Pulse Rate 49 L 47 L 49 L Pulse Rate [ From Monitor] Respiratory 10 L 9 L 10 L Rate Blood Pressure 96/33 96/33 96/33 O2 Sat by Pulse 97 97 99 Oximetry 02/16/21 02/16/21 02/16/21 03:31 03:41 03:51 Temperature Pulse Rate 48 L 47 L 53 L Pulse Rate [ From Monitor] Respiratory 9 L 10 L 13 Rate Blood Pressure 96/33 96/33 96/33 O2 Sat by Pulse 98 97 98 Oximetry 02/16/21 02/16/21 02/16/21 04:00 04:11 04:21 Temperature 99.4 F Pulse Rate 51 L 49 L 47 L Pulse Rate [ 51 L From Monitor] Respiratory 13 10 L 10 L Rate Blood Pressure 106/42 106/42 106/42 O2 Sat by Pulse 98 97 98 Oximetry 02/16/21 02/16/21 02/16/21 04:31 04:41 04:51 Temperature Pulse Rate 46 L 45 L 46 L Pulse Rate [ From Monitor] Respiratory 10 L 11 L 11 L Rate Blood Pressure 106/42 106/42 106/42 O2 Sat by Pulse 98 98 98 Oximetry 02/16/21 02/16/21 02/16/21 05:00 05:11 05:21 Temperature Pulse Rate 45 L 48 L 46 L Pulse Rate [ From Monitor] Respiratory 10 L 10 L 11 L Rate Blood Pressure 98/33 98/33 98/33 O2 Sat by Pulse 99 99 97 Oximetry 02/16/21 02/16/21 02/16/21 05:31 05:41 05:51 Temperature Pulse Rate 47 L 47 L 47 L Pulse Rate [ From Monitor] Respiratory 13 10 L 11 L Rate Blood Pressure 98/33 98/33 98/33 O2 Sat by Pulse 99 98 98 Oximetry 02/16/21 02/16/21 02/16/21 06:00 06:02 06:11 Temperature Pulse Rate 51 L 54 L Pulse Rate [ From Monitor] Respiratory 15 14 16 Rate Blood Pressure 116/44 116/44 O2 Sat by Pulse 97 97 Oximetry 02/16/21 02/16/21 02/16/21 06:21 06:31 06:41 Temperature Pulse Rate 48 L 48 L 48 L Pulse Rate [ From Monitor] Respiratory 16 14 12 Rate Blood Pressure 116/44 116/44 116/44 O2 Sat by Pulse 98 99 98 Oximetry 02/16/21 02/16/21 02/16/21 06:51 07:00 07:11 Temperature Pulse Rate 48 L 50 L 50 L Pulse Rate [ From Monitor] Respiratory 22 17 28 H Rate Blood Pressure 116/44 108/33 108/33 O2 Sat by Pulse 98 98 98 Oximetry 02/16/21 02/16/21 02/16/21 07:20 07:31 07:40 Temperature Pulse Rate 53 L 50 L 70 Pulse Rate [ From Monitor] Respiratory 27 H 17 20 Rate Blood Pressure 108/33 108/33 108/33 O2 Sat by Pulse 99 98 97 Oximetry 02/16/21 02/16/21 02/16/21 07:51 08:00 08:11 Temperature 98.2 F Pulse Rate 50 L 50 L 51 L Pulse Rate [ From Monitor] Respiratory 12 12 12 Rate Blood Pressure 108/33 115/38 115/38 O2 Sat by Pulse 97 96 97 Oximetry 02/16/21 02/16/21 02/16/21 08:21 08:31 08:41 Temperature Pulse Rate 72 68 68 Pulse Rate [ From Monitor] Respiratory 12 12 16 Rate Blood Pressure 115/38 115/38 115/38 O2 Sat by Pulse 95 95 95 Oximetry 02/16/21 02/16/21 02/16/21 08:51 09:01 09:11 Temperature Pulse Rate 67 66 70 Pulse Rate [ From Monitor] Respiratory 18 19 13 Rate Blood Pressure 115/38 108/28 108/28 O2 Sat by Pulse 96 96 97 Oximetry 02/16/21 02/16/21 02/16/21 09:21 09:31 09:41 Temperature Pulse Rate 65 61 59 L Pulse Rate [ From Monitor] Respiratory 18 20 19 Rate Blood Pressure 108/28 108/28 108/28 O2 Sat by Pulse 97 96 96 Oximetry 02/16/21 02/16/21 02/16/21 09:51 10:01 10:11 Temperature Pulse Rate 61 57 L 66 Pulse Rate [ From Monitor] Respiratory 15 16 17 Rate Blood Pressure 113/38 113/38 103/41 O2 Sat by Pulse 97 95 95 Oximetry 02/16/21 02/16/21 02/16/21 10:21 10:31 10:41 Temperature Pulse Rate 59 L 59 L 60 Pulse Rate [ From Monitor] Respiratory 17 16 15 Rate Blood Pressure 103/41 103/41 103/41 O2 Sat by Pulse 94 94 96 Oximetry 02/16/21 02/16/21 10:51 11:00 Temperature Pulse Rate 58 L 58 L Pulse Rate [ From Monitor] Respiratory 17 16 Rate Blood Pressure 103/41 96/34 O2 Sat by Pulse 95 94 Oximetry - General physical appearance Narrative Exam: Gen: AAox3. NAD CV: s1, S2+ Resp; even and unlabored Abd: soft, ND, mild incisional TTP. No r/r/g. Incisions c/d/i Ext: no c/c/e - Labs 02/16/21 03:48 02/15/21 04:03
--- NOTE | 2021-02-16 11:34 | Operative Report ---
Operative Report Operative Report: Date: 02/15/21 Pre-op diagnosis: acute cholecystitis Post-op diagnosis: other (acute cholecystitis, extensive adhesive disease) Findings: 1. extensive adhesions from omentum and transverse colon to abdominal wall, small bowel to gallbladder 2. Gallbladder with large stone and pericholecystic fluid 3. Friable liver bed, hepatomegaly Procedure: laparoscopic extensive lysis of adhesions, cholecystectomy Anesthesia: GETA, local Surgeon: Amanda Meraz DO Naval Architect: ANSELMO YODER Estimated blood loss: other (150-200cc) Pathology: list (gallbladder) Specimen disposition: to lab Condition: stable Disposition: PACU HPI and indication: Patient is a 61-year-old female who presented to the emergency room with epigastric pain. The patient was found to have acute cholecystitis on CT scan and abdominal ultrasound. LFTs were within normal limits. It was recommended that the patient undergo cholecystectomy. All risk, benefits, alternatives to surgery were discussed with the patient and questions answered. Consent was obtained. Procedure in detail: The patient was identified in the preoperative area and taken back to the operating room, placed on the operating room table in supine position. After anesthesia was induced, the abdomen was prepped and draped in usual sterile fashion and timeout was performed. Local anesthetic was infiltrated into all of the skin incision sites. A ruben incision was made in the left upper quadrant through which a Veress needle was inserted. The Veress needle positioning was confirmed using saline drop test and the abdomen insufflated to 15 mmHg. A left upper quadrant incision was then made through which a 5 mm Optiview trocar was placed under direct visualization. The abdomen was inspected and there was no underlying injury to the abdominal structures. The Veress needle was identified and removed. Immediately noted upon inspection of the abdomen were extensive adhesions from the omentum and transverse colon to the anterior abdominal wall. Additional 5 mm ports were placed around the abdomen under direct visualization in order to facilitate lysis of adhesions. Lysis of adhesions was undertaken using a combination of blunt dissection, dissection with the LigaSure, and sharp dissection with EndoShears. This was done with great care to avoid injury to the surrounding structures. Once the extensive adhesiolysis was complete which took approximately 90 minutes, the gallbladder was visualized. The gallbladder fundus was able to be grasped and retracted cephalad however there were adhesions from the small bowel to the gall bladder. These were taken down using sharp dissection with EndoShears. The freed small bowel was inspected and no injury identified. The gallbladder was then retracted in the usual fashion the cystic duct and artery were carefully dissected and skeletonized. The critical view was successfully obtained and the cystic duct and artery were seen as the only 2 structures entering the gallbladder. 3 clips were placed on the proximal aspect of the cystic duct and 1 distally and this was transected in between the clips using EndoShears. 3 clips were placed on the proximal aspect of the cystic artery and this was ligated using the LigaSure. The gallbladder was then dissected from the liver bed using hook electrocautery. There was pericholecystic fluid. The liver bed was extremely friable. Hemostasis was carefully ensured using electrocautery and Surgicel placed against the liver bed, pressure. The gallbladder was placed into an Endo Catch bag. The 5 mm left lower quadrant port was elongated and a 12 mm port placed under direct visualization. The gallbladder was removed from the abdomen via the 12 mm port. The gallbladder was palpated and there was a large stone. This was passed off the table as a specimen. The liver bed and right upper quadrant were then irrigated and hemostasis very carefully ensured. There was no bleeding or bile leakage seen from the liver bed or gallbladder fossa. The clips on the cystic duct and artery were inspected and intact. The 12 mm port was then removed and the fascia approximated using 0 Vicryl sutures using the Jerry Herrera device. The remaining ports were removed systematically under direct visualization and no bleeding was identified. The abdomen is desufflated. Local anesthetic was once again infiltrated into the skin. All skin incisions were approximated using 4-0 Monocryl subcuticular stitches and skin glue. At the end case all sponge, instrument, sharp counts were correct 2. The patient was awoken from anesthesia, extubated, and taken to PACU in stable condition.
--- NOTE | 2021-02-16 13:46 | Discharge Summary ---
Providers - Providers Date of Admission: 02/14/21 16:29 Date of discharge: 02/16/21 Attending physician: MARYANN GONZALES MD 02/15/21 06:38 Consult to Physician [CONS] Stat Comment: OLGA Churchill spoke with Dr. Staley @ 1624 Consulting Provider: KYRIE STALEY Physician Instructions: NPO, Admit to hospitalist Reason For Exam: cholecystitis Primary care physician: JAYMIE LR MD Hospitalization Reason for admission: Acute cholecystitis, extensive adhesive disease Condition: Stable Procedures: Laparoscopic extensive lysis of adhesions, cholecystectomy Hospital course: History of present illness: 61 YO Female with Obesity Hypoventilation Syndrome,HTN, HLD, Colon Cancer S/P resection presents to ED for evaluation. Patient reports "my stomach hurts". Patient states that she has experienced abdominal pain over the past 1 day with persistent symptoms over the same timeframe. Patient states that pain is 5/10, constant, worsened with movement, relieved with nonmovement. Patient transported to [facility] via private vehicle for further care and evaluation of the aforementioned symptoms. The patient was seen and evaluated in the emergency department. All lab and imaging studies reviewed. Patient with CT scan of the abdomen and pelvis and was found to have evidence of acute cholecystitis. Patient admitted to medical floor and treated with bowel rest, pain control, and supportive care. Surgical team consulted in ED. No reports of fever, chills, chest pain, palpitation, adductive cough, skin rash, recent ill contacts, or known exposure to COVID-19. No prior admission for review. No medication listed at time of admission reconciliation. Advanced care planning conducted in ED. Hospital course Patient was admitted to the floor and was managed with IV antibiotics and general surgery Dr. Staley was consulted and did laparoscopic extensive lysis of adhesions and cholecystectomy. Patient was seen and evaluated and complaining of abdominal pain. Patient will be given pain medicine at discharge. Dr Staley cleared for discharge from surgical point of view and will follow the patient as an outpatient. I have discussed her daughter and discussed the management plan patient discharged home today. Disposition: DC-01 TO HOME OR SELFCARE Final Discharge Diagnosis (Prints w/discharge instructions): Cholecystitis. Adhesion from previous surgery Time spent for discharge: 35 minutes - Discharge Diagnoses (1) Acute cholecystitis Status: Acute (2) Adhesion of intestine Status: Acute Core Measure Documentation - Palliative Care Palliative Care/ Comfort Measures: Not Applicable - Core Measures Any of the following diagnoses?: none Exam - Physical Exam Narrative exam: Not in cardiopulmonary distress. The patient appeared well nourished and normally developed. Vital signs as documented. Head exam is unremarkable. No scleral icterus . Neck is without jugular venous distension, thyromegaly, or carotid bruits. Lungs are clear to auscultation. Cardiac exam reveals regular rate and Rhythm. Abdominal exam reveals abdominal pain. Extremities are nonedematous and both femoral and pedal pulses are normal. [employer]: Alert and oriented 3. No focal weakness. - Constitutional Vitals: Temp Pulse Resp BP Pulse Ox 97.9 F 57 L 15 103/40 95 02/16/21 12:00 02/16/21 12:00 02/16/21 12:00 02/16/21 12:02/16/21 12:00 Plan Activity: no restrictions Weight Bearing Status: Full Weight Bearing Diet: regular Follow up with: JAYMIE LR MD [Primary Care Provider] - 3-5 Days Prescriptions: oxyCODONE /ACETAMINOPHEN [Percocet 5/325 mg] 1 tab PO Q6H PRN #14 tablet PRN Reason: Pain, Moderate (4-6)
[2021-02-16] MEDS ORDERED: METOCLOPRAMIDE 10 MG/2 ML INJ IV ONE (15:00)
[2021-02-16 18:47] VITALS: BP 107/19
== END 2021-02-16 19:26 | disposition home or self-care (01) ==
LOC: ED 08:36 → 3A 16:29 → 4A 02-15 18:07 → IMCU 02-15 21:00
PROVIDERS: ADMIT Internal Medicine; ATTEND Internal Medicine
DX: K81.0 Acute cholecystitis (principal); E66.2 Morbid (severe) obesity with alveolar hypoventilation; I10 Essential (primary) hypertension; E78.2 Mixed hyperlipidemia; Z68.34 Body mass index [BMI] 34.0-34.9, adult; Z79.899 Other long term (current) drug therapy; Z98.890 Other specified postprocedural states
CPT/HCPCS: 36415; 47562; 71046; 74177; 76705; 80053; 80076; 81001; 82962; 83690; 84484; 85025; 85027; 86850; 86900; 86901; 88304; 93005; 96361; 96365; 96366; 96375; 99285; G0378; J1100; J1170; J2250; J2270; J2405; J2543; J2704; J2765; J3010; J7030; Q9967